=== PATIENT | female | born 1990 | race Caucasian/White ===

== ENCOUNTER 2016-11-21 15:18 | Emergency (ER) | payer OTHER ==
[2016-11-21 15:49] LABS: HCG,QUALITATIVE URINE NEGATIVE
[2016-11-21] MEDS ORDERED: ONDANSETRON 4 MG ODT TAB ONE (15:54)
--- NOTE | 2016-11-21 17:04 | US ---
PELVIC ULTRASOUND HISTORY: Suprapubic pain. Transabdominal and transvaginal pelvic sonography performed. TRANSABDOMINAL IMAGING UTERINE DIMENSIONS: 8.5 x 4.4 x 4.3 cm. BLADDER: Largely decompressed. TRANSVAGINAL IMAGING: ENDOMETRIAL THICKNESS: 6.6 mm. Heterogeneous hypervascular appearance. FOCAL UTERINE LESIONS: None. RIGHT OVARY: 2.6 x 2.4 x 2.4 cm for a volume of 7.6 cc. LEFT OVARY: 2.3 x 2.3 x 2.1 cm for volume of 5.9 cc. OVARIAN BLOOD FLOW: Documented bilaterally. DOMINANT ADNEXAL LESIONS: No dominant lesion noted. Small 8 mm left paraovarian cyst. 1.5 cm hypoechoic focus of the right ovary may simply reflect corpus luteum. FREE FLUID: None. IMPRESSION: Moderately heterogeneous, nonthickened endometrium which may relate to ongoing menstruation. No free fluid or dominant adnexal mass lesion. Results were electronically transmitted to the electronic medical record at 11/21/2016 at 1700 hours.
== END 2016-11-21 18:07 | disposition home or self-care (01) ==
LOC: ED 15:18
DX: R10.30 Lower abdominal pain, unspecified (principal)
CPT/HCPCS: 81025; 76856; 76830; 99283 ×2; A9270